=== PATIENT | female | born 1975 | race Caucasian/White ===

== ENCOUNTER 2021-06-17 20:16 | Inpatient (IN) | payer OTHER ==
[~2021-06-17] VITALS: Ht 152.4 cm; Wt 55.3 kg
[2021-06-17 20:24] VITALS: BP 104/44
[2021-06-17 20:47] LABS: ABSOLUTE NEUTROPHILS 4.8 thou/uL (1.4-8.2); BASOPHILS 0.4 % (0.0-2.0); HEMOGLOBIN 8.1 gm/dL (12.0-15.0); LYMPHOCYTES 14.7 % (24.0-44.0); MCH 27.6 pg (26.0-34.0); MCV 98.7 fL (80.0-100.0); PLATELET COUNT 328 thou/uL (150-400); POLYS 77.9 % (36.0-66.0); RBC 2.94 mil/uL (4.20-5.00); RDW 17.7 % (10.5-14.5); WBC 6.2 thou/uL (4.0-11.0)
[2021-06-17 21:08] LABS: BUN 51 mg/dL (7-18); CALCIUM 7.7 mg/dL (8.5-10.1); CHLORIDE 93 mmol/L (98-107); CREATININE 2.1 mg/dL (0.6-1.0); POTASSIUM 5.1 mmol/L (3.5-5.1); SODIUM 129 mmol/L (136-145)
[2021-06-17 21:10] LABS: ALBUMIN 2.7 g/dL (3.4-5.0); SGOT 99 U/L (15-37); SGPT 43 U/L (14-59); TOTAL BILIRUBIN 0.4 mg/dL (0.2-1.0); TOTAL PROTEIN 6.2 g/dL (6.4-8.2)
[2021-06-17 21:32] LABS: ANION GAP 31 mmol/L (7-16)
[2021-06-17 21:34] LABS: CO2 < 5 mmol/L (21-32); GLUCOSE 782 mg/dL (74-106)
[2021-06-17 21:57] LABS: BE(vivo) -27.9 mmol/L (-2 to +3); HCO3 3.2 mmol/L (22.0-26.0); PCO2 VENOUS 16.6 mmHg (41.0-51.0); PO2 VENOUS 71.9 mmHg (35.0-45.0)
[2021-06-18 02:47] LABS: HEMOGLOBIN 8.3 gm/dL (12.0-15.0); MCH 27.8 pg (26.0-34.0); MCHC 25.9 g/dL (28.0-37.0); RBC 2.98 mil/uL (4.20-5.00); RDW 17.4 % (10.5-14.5); WBC 7.1 thou/uL (4.0-11.0)
[2021-06-18 03:02] LABS: BUN 50 mg/dL (7-18); CALCIUM 7.4 mg/dL (8.5-10.1); CHLORIDE 97 mmol/L (98-107); CREATININE 1.9 mg/dL (0.6-1.0); MAGNESIUM 2.5 mg/dL (1.8-2.4); POTASSIUM 5.8 mmol/L (3.5-5.1); SODIUM 133 mmol/L (136-145)
[2021-06-18 03:23] LABS: ANION GAP 31 mmol/L (7-16)
[2021-06-18 03:24] LABS: CO2 < 5 mmol/L (21-32); GLUCOSE 788 mg/dL (74-106); MCV 107.3 fL (80.0-100.0)
[2021-06-18 07:29] LABS: ALBUMIN 2.6 g/dL (3.4-5.0); BUN 44 mg/dL (7-18); CALCIUM 6.9 mg/dL (8.5-10.1); CHLORIDE 105 mmol/L (98-107); CREATININE 1.9 mg/dL (0.6-1.0); MAGNESIUM 2.3 mg/dL (1.8-2.4); PHOSPHORUS 5.8 mg/dL (2.6-4.7)
[2021-06-18 07:31] LABS: ANION GAP 31 mmol/L (7-16)
[2021-06-18 07:33] LABS: CO2 < 5 mmol/L (21-32); GLUCOSE 557 mg/dL (74-106)
[2021-06-18 07:34] LABS: POTASSIUM 4.2 mmol/L (3.5-5.1); SODIUM 141 mmol/L (136-145)
--- NOTE | 2021-06-18 08:00 | EKG ---
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 Equipment Technician: SAVICONRADOAlexa : 1975 Requested By: Regina Ridley Order Number: [id number] MD: Peter Nieto Measurements Intervals [place] Rate: 88 P: 63 [place]: 164 QRS: 53 QRSD: 100 T: 3 QT: 401 QTc: 486 Interpretive Statements Sinus rhythm Borderline prolonged QT interval No previous ECG available for comparison Electronically Signed On 06-18-2021 8:00:12 MANAGER OUTREACH by Peter Nieto [email or web address] <ELECTRONICALLY SIGNED> By: Peter Nieto MD, [facility] 06/18/2100 45 45 Peter Nieto MD, FACC /EPI
[2021-06-18 10:00] LABS: HCO3 7.4 mmol/L (22.0-26.0); sO2 97.3 % (92.0-98.0)
[2021-06-18 10:01] LABS: pH 7.187 (7.360-7.450)
[2021-06-18 10:58] VITALS: BP 139/61
[2021-06-18 11:53] LABS: ALBUMIN 2.6 g/dL (3.4-5.0); CALCIUM 7.2 mg/dL (8.5-10.1); CREATININE 1.9 mg/dL (0.6-1.0); MAGNESIUM 2.1 mg/dL (1.8-2.4); PHOSPHORUS 3.7 mg/dL (2.5-4.9); POTASSIUM 3.5 mmol/L (3.5-5.1); TOTAL BILIRUBIN 0.3 mg/dL (0.2-1.0)
[2021-06-18 14:25] VITALS: BP 140/58
--- NOTE | 2021-06-18 15:12 | NUR ---
PT ADMITTED RELATED TO DKA, COVID 19, CHEST PAIN, DEHYDRATION. CM REVIEWED CHART AND SPOKE WITH CARE TEAM. CM ATTEMPED PT TO PT ON HER CELL . CM LEFT VM. CM CALLED AND SPOKE WITH PT'S MOTHER VINH BRADFORD . SHE INDICATED THAT PT RESIDES IN A HOUSE WITH HER DTR GEOVANI AND SON. SHE INDICATED THAT TO HER KNOWLEDGE THAT PT HAD BEEN INDEPENDENT WITH GIAT AND ADLS [employer] [facility]. SHE INDICATED THAT PT HAD BEEN GOING TO [facility] FOR OP INFUSION AND WC [employer] [facility]. SHE DIDN'T KNOW PT'S PCP. SHE PROVIDED CM'S INFO TO PT'S DTR GEOVANI CINTHYA WE HAD A NON WORKING NUMBER LISTED FOR HER CORRECT CONTACT IS . CM SPOKE WITH GEOVANI MENDES. SHE INDICATED THERE IS ON STEP TO ENTER HOME AND THAT PT HAD BEEN USING A CANE TO ASSIST WITH MOBILITY [employer]. DTR INDICATED THAT PT HAD BEEN DOING OP INFUSION AT [facility] EVERY WEDNESDAY AROUND 12 FOR 2 HRS. SHE INDICATED HER PCP IS DR. GAINES IN [facility] AND THAT PT SEES DR. MUELLER IN [facility]. SHE INDICATED THAT SHE ANTICAPTED PT RETURNING HOME ONCE MEDICALLY STABLE. CM FOLLOWING REGARDING POSSIBLE NEEDS UPON DC.
[2021-06-18 16:59] LABS: % SATURATION 4 % (20-39); IRON 8 ug/dL (50-170); TIBC 221 ug/dL (250-450)
[2021-06-18 18:00] LABS: ALBUMIN 1.7 g/dL (3.4-5.0); CREATININE 1.2 mg/dL (0.6-1.0); MAGNESIUM 1.4 mg/dL (1.8-2.4); TOTAL BILIRUBIN 0.2 mg/dL (0.2-1.0)
[2021-06-18 18:10] LABS: CALCIUM 5.3 mg/dL (8.5-10.1)
[2021-06-18 18:12] LABS: POTASSIUM 2.6 mmol/L (3.5-5.1)
[2021-06-18 18:26] LABS: PHOSPHORUS 2.2 mg/dL (2.6-4.7)
[2021-06-18 19:17] LABS: ALBUMIN 1.6 g/dL (3.4-5.0); CREATININE 1.3 mg/dL (0.6-1.0); MAGNESIUM 1.3 mg/dL (1.8-2.4); PHOSPHORUS 2.3 mg/dL (2.6-4.7); POTASSIUM 3.1 mmol/L (3.5-5.1); TOTAL BILIRUBIN 0.2 mg/dL (0.2-1.0); TOTAL PROTEIN 3.9 g/dL (6.4-8.2)
[2021-06-18 19:24] LABS: CALCIUM 5.3 mg/dL (8.5-10.1)
[2021-06-18 23:54] LABS: ALBUMIN 1.7 g/dL (3.4-5.0); CALCIUM 5.7 mg/dL (8.5-10.1); CREATININE 1.5 mg/dL (0.6-1.0); MAGNESIUM 1.3 mg/dL (1.8-2.4); PHOSPHORUS 1.4 mg/dL (2.6-4.7)
[2021-06-18 23:56] LABS: POTASSIUM 2.6 mmol/L (3.5-5.1)
[2021-06-19 00:35] LABS: CALCIUM 6.5 mg/dL (8.5-10.1); CREATININE 1.7 mg/dL (0.6-1.0); MAGNESIUM 1.6 mg/dL (1.8-2.4); PHOSPHORUS 1.7 mg/dL (2.6-4.7); POTASSIUM 3.1 mmol/L (3.5-5.1)
[2021-06-19 04:08] LABS: IgG 478 mg/dL (586-1602)
[2021-06-19 07:08] LABS: GLYCOHEMOGLOBIN (HGB A1C) 13.6 % (4.8-5.6)
[2021-06-19 07:19] LABS: ALBUMIN 1.9 g/dL (3.4-5.0); CALCIUM 6.5 mg/dL (8.5-10.1); CREATININE 1.6 mg/dL (0.6-1.0); MAGNESIUM 1.5 mg/dL (1.8-2.4); PHOSPHORUS 1.7 mg/dL (2.6-4.7); POTASSIUM 3.2 mmol/L (3.5-5.1)
--- NOTE | 2021-06-19 07:48 | HC ---
[facility] [place] [address] CONSULTATION Name: FARAZ LANE Room #: 170-6 ADM IN M.R.#: [id number] Admission: 06/17/21 Attend Phys: Lewis Aguila MD Discharge: Date of : 73 Report #: [id number] THIS REPORT FOR: cc: [facility] - Clinic physician unknown [facility] - Clinic physician unknown Carmelo Powell MD ~ DATE OF SERVICE: 06/18/2021 INFECTIOUS DISEASE CONSULTATION ATTENDING PHYSICIAN: Dr. Aguila. REASON FOR EVALUATION: COVID-19 infection, complicated by diabetic ketoacidosis. HISTORY OF PRESENT ILLNESS: Chart reviewed. The patient examined. This is a 45-year-old woman who has had diabetes mellitus roughly 25 years, who presented to an outside hospital, was found to have cough, some degree of dyspnea, nausea and emesis with progressive weakness. She was evaluated and was found to be markedly hyperglycemic, evidence of diabetic ketoacidosis, also positive for COVID-19. She was transferred for ongoing treatment and evaluation. She was hypotensive, started on norepinephrine, had required supplemental oxygen for a period of time as well. She notes she feels generally very poorly at this point, so empirically started on combination therapy with vancomycin and Zosyn and started on insulin protocol. Blood sugars now in the 200s. Initial lactic acid of 3.2, serially has been repeated now down to 1.6. Procalcitonin 0.48. Creatinine was increased to 2.1 with ____ low sodium of 129, given the glucose of 72. She is somewhat somnolent. She does admit to generalized abdominal discomfort. ALLERGIES: HYDROCODONE ____ INSULIN. CURRENT MEDICATIONS: Includes vancomycin, prochlorperazine, tramadol, ascorbic acid, zinc, Zosyn, p.r.n. ondansetron, analgesics. PAST MEDICAL HISTORY: Includes diabetes mellitus type 2, does have a chronic foot ulcer involving the plantar aspect of the right foot, previous toe amputations, previous cholecystectomy. SOCIAL HISTORY: No ethanol. No illicit drug use. Nonsmoker. FAMILY HISTORY: Unremarkable. REVIEW OF SYSTEMS: As noted above. PHYSICAL EXAMINATION: [facility] [address] [place] [address] CONSULTATION Name: FARAZ L[address] Room #: 170-6 ADM IN .R.#: [id number] Admission: 06/17/21 Attend Phys: Lewis Aguila MD Discharge: Date of : 73 Report #: [id number] GENERAL: She is chronically ill. She is really quite lethargic at this point, undernourished, pale, in moderate distress. VITAL SIGNS: Temperature 99.6, pulse 100, respirations 17, blood pressure 140/58. SKIN: Warm, dry, no rashes. HEENT: Normocephalic. Extraocular muscles intact. NECK: Supple. LUNGS: Diminished breath sounds. HEART: Tachycardic. Appears irregular. I do not appreciate a murmur. ABDOMEN: Distended, somewhat firm, mildly tender. No overt peritoneal signs. GENITOURINARY AND RECTAL: Deferred. LABORATORY DATA: Electrolytes: Sodium 143, potassium 3.5, chloride 105, bicarbonate 7, anion gap of 31, BUN and creatinine 44 and 1.9, glucose of 372. AST of 380, ALT of 139, albumin 2.6, total protein 6.0. ABGs: pH 7.187, pCO2 of 20, pO2 of 114 on room air. Lactic acid most recently 1.6. Coronavirus testing was positive. Procalcitonin 0.48. ASSESSMENT AND PLAN: 1. COVID-19 infection. 2. Diabetic ketoacidosis complicated by multiorgan dysfunction. 3. Acute kidney injury, elevated LFTs. We will continue empiric therapy with Zosyn and vancomycin. At this point, criteria likely preclude use of remdesivir, we will treat with baricitinib if pharmacy agreeable; corticosteroids likely exacerbate hyperglycemia, at this point it is not evident if she has primary pulmonary issues, although certainly at risk for clinical deterioration. At this point, she is quite ill. Continue efforts to correct ketoacidosis. We will monitor expectantly. <ELECTRONICALLY SIGNED> By: Carmelo Powell MD 06/19/21 0748 1540 2124 Carmelo Powell MD /nt
--- NOTE | 2021-06-19 08:09 | NUR ---
THIS RN HAS NOTIFIED DR OLMSTEAD REGARDING PT RESPONSE TO DKA PROTOCOL. VERBAL ORDERS GIVEN TO THIS RN FROM DR. OLMSTEAD. ORDER TO STOP FLUID INFUSION OF SODIUM BICARB AND CONTINUE INSULIN DRIP FOR 2 MORE HOURS, CHANGE RATE OF D5 1/2 NS TO 125 ML/HR, AND GIVE 40 MEQ K+ PO FOR K+ LEVEL. AWAITING FURTHER ORDERS TO D/C INSULIN DRIP AND INITIATE LANTUS. PT TOLERATING TX WELL. VSS.
[2021-06-19 08:43] VITALS: BP 110/49
--- NOTE | 2021-06-19 11:41 | NUR ---
DR FARLEY AT BEDSIDE, VERBAL ORDERS GIVEN TO D/C INSULIN DRIP IN APPROX 2 HOURS AFTER INITIATINGSUBQ INSULIN. SEE MAR FOR ORDERS. PT IS RESTING COMFORTABLY IN BED WITH EYES CLOSED.
--- NOTE | 2021-06-19 12:55 | NUR ---
PERIPERAL RIGHT FOREARM IV DCd. PHARM INSTRUCT TO ICE ARM AFTER IRON INFILTRATION. ICE PACK PLACED ON ARM.
[2021-06-19 14:07] LABS: ANA INTERPRETATION Positive (Negative)
[2021-06-19 14:31] LABS: ALBUMIN 1.6 g/dL (3.4-5.0); CREATININE 1.5 mg/dL (0.6-1.0); POTASSIUM 3.2 mmol/L (3.5-5.1); TOTAL BILIRUBIN 0.2 mg/dL (0.2-1.0); TOTAL PROTEIN 4.2 g/dL (6.4-8.2)
[2021-06-19 15:55] LABS: ALBUMIN 1.9 g/dL (3.4-5.0); CALCIUM 6.5 mg/dL (8.5-10.1); CREATININE 1.5 mg/dL (0.6-1.0); POTASSIUM 3.8 mmol/L (3.5-5.1); TOTAL BILIRUBIN 0.2 mg/dL (0.2-1.0); TOTAL PROTEIN 5.1 g/dL (6.4-8.2)
[2021-06-19 16:06] LABS: CERULOPLASMIN 18.7 mg/dL (19.0-39.0)
--- NOTE | 2021-06-19 16:32 | NUR ---
INSULIN DRIP AND D5 0.45NS D/C.
[2021-06-19 17:13] VITALS: BP 129/67
[2021-06-19 18:07] VITALS: BP 148/61
[2021-06-19 19:37] VITALS: BP 143/76
[2021-06-19 23:52] VITALS: BP 126/58
[2021-06-20] VITALS (8 sets, daily range): BP systolic 133–163; BP diastolic 72–92
[2021-06-20 03:45] LABS: MCHC 32.5 g/dL (28.0-37.0); RBC 2.37 mil/uL (4.20-5.00)
[2021-06-20 03:48] LABS: MCH 27.1 pg (26.0-34.0); RDW 17.2 % (10.5-14.5); WBC 6.7 thou/uL (4.0-11.0)
[2021-06-20 04:05] LABS: MCV 83.4 fL (80.0-100.0)
[2021-06-20 04:06] LABS: HEMOGLOBIN 6.4 gm/dL (12.0-15.0)
[2021-06-20 04:07] LABS: HEMATOCRIT 19.8 % (37.0-47.0)
[2021-06-20 05:03] LABS: ALBUMIN 1.6 g/dL (3.4-5.0); CALCIUM 6.2 mg/dL (8.5-10.1); CREATININE 1.4 mg/dL (0.6-1.0); MAGNESIUM 1.7 mg/dL (1.8-2.4); POTASSIUM 3.4 mmol/L (3.5-5.1); TOTAL BILIRUBIN 0.2 mg/dL (0.2-1.0); TOTAL PROTEIN 4.5 g/dL (6.4-8.2)
--- NOTE | 2021-06-20 07:44 | NUR ---
ASSUMED PT CARE AT 1900. PT ALERT & ORIENTED X 4 BUT IS LETHARGIC. THIS PT IS A NEW ADMISSION FROM ER. PT WAS FEBRILE AT BEGINNING OF SHIFT. ADMINISTERED TYLENOL AND NOTED RELIEF. PT HAD MULTIPLE C/O OF HEADACHE. ADMINISTERED PAIN MEDS PRN AND NOTED PARTIAL RELEIF. IV ABX AND FLUIDS ADMINISTERED. PT RECEIVED CRITICAL LAB THIS MORNING-HGB 6.4, NOTIFIED BELL STAFF AND RECEIVED ORDERS TO RECHECK HGB STAT. HGB RECHECK WAS 5.9. NOTIFIED BELL STAFF AND RECEIVED ORDERS TO TRANSFUSE, MAKE PT NPO, CONSULT GI, AND RECHECK HGB 1 HOUR POST TRANSFUSION. PT HAS A RIGHT DM TOE ULCER, THIS NURSE OBTAINED PICTURE AND PUT IT IN PT'S CHART. PT HAS WALDRON TO DD AND IS INCONTINENT OF BOWEL. WILL CONTINUE TO MONITOR.
[2021-06-20 10:03] LABS: BASOPHILS 0.2 % (0.0-2.0); HEMATOCRIT 23.4 % (37.0-47.0); HEMOGLOBIN 7.2 gm/dL (12.0-15.0); MCH 26.4 pg (26.0-34.0); MCV 85.2 fL (80.0-100.0); MONOCYTES 1.6 % (1.0-8.0); PLATELET COUNT 181 thou/uL (150-400); POLYS 88.2 % (36.0-66.0); RBC 2.75 mil/uL (4.20-5.00); RDW 17.4 % (10.5-14.5); WBC 6.8 thou/uL (4.0-11.0)
[2021-06-20 10:07] LABS: CREATININE 1.5 mg/dL (0.6-1.0); POTASSIUM 3.6 mmol/L (3.5-5.1)
[2021-06-20 10:13] LABS: ALBUMIN 1.9 g/dL (3.4-5.0); TOTAL BILIRUBIN 0.4 mg/dL (0.2-1.0); TOTAL PROTEIN 5.1 g/dL (6.4-8.2)
[2021-06-20 11:38] LABS: CHOLESTEROL 81 mg/dL (<200); HDL CHOLESTEROL 23 mg/dL (>40); LDL CHOLESTEROL 38 mg/dL (<100); TC:HDL 3.5 Ratio (Not establshd); TRIGLYCERIDE 100 mg/dL (<150); VLDL 20 mg/dL (<40)
--- NOTE | 2021-06-20 13:16 | 2DMMODE ---
[facility] [place] [address] 2 D/M-MODE ECHOCARDIOGRAM Name: FARAZ LANE Room #: 355-P ADM IN M.R.#: [id number] Admission: 06/17/21 Attend Phys: Lewis Aguila MD Discharge: Date of : 73 Report #: [id number] THIS REPORT FOR: cc: [facility] - Clinic physician unknown [facility] - Clinic physician unknown Peter Nieto MD [facility] ~ APPROVED REPORT Study performed: 06/20/2021 12:12:32 EXAM: Limited 2D, Doppler, and color-flow Echocardiogram Patient Location: Bedside Room #: 355 Status: routine BSA: 1.68 HR: 91 bpm BP: 147/78 mmHg Rhythm: NSR Other Information Study Quality: Adequate Indications Short of breath, chest pain, COVID + 2D Dimensions IVSd: 9.58 (7-11mm) LVDd: 39.97 mm PWd: 9.90 (7-11mm) LVDs: 25.65 (25-40mm) Left Atrium: 31.06 (27-40mm) Aortic Root: 27.44 mm Aortic Valve AoV Peak Kelvin.: 1.14 m/s AO Peak Gr.: 5.20 mmHg Mitral Valve E/A Ratio: 1.6 MV Decel. Time: 172.19 ms MV E Max Kelvin.: 1.06 m/s MV A Kelvin.: 0.67 m/s MV PHT: 49.93 ms Pulmonary Valve [facility] [address] [place] [address] 2 D/M-MODE ECHOCARDIOGRAM Name: FARAZ LANE Room #: 355-P ADM IN M.R.#: [id number] Admission: 06/17/21 Attend Phys: Lewis Aguila, Discharge: Date of : 73 Report #: [id number] PV Peak Kelvin.: 0.83 m/s PV Peak Gr.: 2.77 mmHg Tricuspid Valve TR Peak Kelvin.: 3.26 m/s RAP Estimate: 10.00 mmHg TR Peak Gr.: 42.47 mmHg PA Pressure: 52.00 mmHg Left Ventricle The left ventricle is normal size. There is normal LV segmental wall motion. There is normal left ventricular wall thickness. Left ventricular systolic function is normal. LVEF is 60-65%. The left ventricular diastolic function is normal. Right Ventricle The right ventricle is normal size. The right ventricular systolic function is normal. Atria The left atrium size is normal. The right atrium size is normal. Aortic Valve The aortic valve is normal in structure. No aortic regurgitation is present. There is no aortic valvular stenosis. Mitral Valve The mitral valve is normal in structure. Mild to moderate mitral regurgitation. Tricuspid Valve The tricuspid valve is normal in structure. Moderate tricuspid regurgitation. Estimated PAP is 50mmHg. Pulmonic Valve Pulmonic valve is not well visualized. Trace pulmonic regurgitation. Great Vessels The aortic root is normal in size. IVC is borderline dilated and collapses <50% with inspiration. Pericardium There is no pericardial effusion. <Conclusion> Normal left ventricle size/wall thickness [facility] [address] [place] [address] 2 D/M-MODE ECHOCARDIOGRAM Name: FARAZ LANE Room #: 355-P [facility] IN .R.#: [id number] Admission: 06/17/21 Attend Phys: eLwis Aguila, Discharge: Date of : 73 Report #: [id number] Ejection fraction 60% Normal right ventricular size/function Normal atrial size Normal aortic/mitral valve structure and function Mild to moderate/central mitral valve insufficiency Moderate tricuspid valve insufficiency Pulmonary systolic pressure estimated at 50 mmHg. No pericardial effusion Normal aortic root size. <ELECTRONICALLY SIGNED> By: Peter Nieto MD, FACC 06/20/211315 15 15 Peter Nieto MD, FACC /INF
--- NOTE | 2021-06-20 14:30 | NUR ---
SW reviewed chart and spoke with nursing and attending physician. Pt remains in Enhanced Isolation due to COVID. Pt has been febrile and is on room air. Pt is on IV abx. Pt had blood transfusion due to low hemoglobin. No weekend discharge planned. Therapy evals to be ordered when pt is able to participate. SW is following to assist as needed with discharge planning.
--- NOTE | 2021-06-20 16:40 | NUR ---
RN ASSUMED PT'S CARE AT 0700AM, PT IS A&OX4, RN HAS CALLED DR TO REPORT PT'S BLACK STOOL AND LOW HGB ( RECHECK 7.2),PT HAS FNISHED 1 UNIT BLOOD TRANSFUSION BY 1425PM, NO BLOOD REACTION BY THIS TIME, PT WAS IN GI LAB , EGD SHOWS GASTRITIS, NO ACTIVE BLEEDING , PT IS TOLERATVE GI PROCEDURE, PT'S VS AND O2SAT ARE STABLE BY THIS TIME, RN HAS UPDATED PT'S INFORMATIOM TO PT'S DAUGTER. PT IS CONTINUING IV ABX AND TREAT COVID MEDICATION. PT START TO EAT AT DINNER TIME.
[2021-06-21 00:04] VITALS: BP 161/82
[2021-06-21 04:53] VITALS: BP 157/83
[2021-06-21 05:01] LABS: HEMATOCRIT 27.7 % (37.0-47.0); HEMOGLOBIN 9.1 gm/dL (12.0-15.0); MCHC 32.8 g/dL (28.0-37.0); MCV 85.5 fL (80.0-100.0); RBC 3.24 mil/uL (4.20-5.00); WBC 7.8 thou/uL (4.0-11.0)
[2021-06-21 05:13] LABS: URINE BILIRUBIN NEGATIVE (Negative); URINE BLOOD 2+ (Negative); URINE CLARITY SL CLOUDY; URINE COLOR YELLOW; URINE GLUCOSE-RANDOM* 1+ (Negative); URINE KETONES NEGATIVE (Negative); URINE LEUKOCYTES-REFLEX TRACE (Negative); URINE NITRITE-REFLEX NEGATIVE (Negative); URINE PROTEIN (DIPSTICK) TRACE (Negative); URINE UROBILINOGEN 0.2 E.U./dl (0.2-1.0)
[2021-06-21 05:22] LABS: SQUAMOUS 0-3 Few /LPF (0-3); YEAST-REFLEX Present (None Seen)
[2021-06-21 05:23] LABS: ALBUMIN 1.9 g/dL (3.4-5.0); CALCIUM 7.5 mg/dL (8.5-10.1); CREATININE 1.4 mg/dL (0.6-1.0); MAGNESIUM 1.9 mg/dL (1.8-2.4); TOTAL BILIRUBIN 0.6 mg/dL (0.2-1.0); TOTAL PROTEIN 5.5 g/dL (6.4-8.2)
[2021-06-21 05:23] LABS: CASTS None Seen /LPF (None Seen); URIC ACID CRYSTALS >10 Many /LPF (None Seen); URINE RBC 1-2 Rare /HPF (NONE SEEN); URINE WBC-REFLEX 6-15 Few /HPF (0-5)
--- NOTE | 2021-06-21 06:29 | NUR ---
ASSUMED PT CARE AT 1900. PT IS RESTING IN BED AND IS LETHARGIC. PT HAS MULTIPLE C/O OF PAIN AND ACHINESS. ADMINISTERED PAIN MEDS PRN AND NOTED PARTIAL RELIEF. PT WAS FEBRILE AT BEGINNING OF SHIFT. ADMINISTERED TYLENOL AND NOTED RELIEF. PT ALSO HAD C/O OF N/V, ADMINISTERED ZOFRAN X 2 AND NOTED RELIEF. PT'S BLOOD SUGAR AT 2039 WAS HIGH -321. CONTACTED SURGICAL APPLIANCES SALESPERSON AND RECEIVED AND IMPLEMENTED ORDERS FOR INSULIN. WILL CONTINUE TO MONITOR.
[2021-06-21 07:54] VITALS: BP 155/80
--- NOTE | 2021-06-21 10:52 | EKG ---
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: JANE : 1975 Requested By: Wendy Callejas Order Number: [id number] MD: Jamil Massey Measurements Intervals [place] Rate: 85 P: 40 SD: 133 QRS: 18 QRSD: 61 T: 2 QT: 528 QTc: 628 Interpretive Statements Sinus rhythm Low voltage, precordial leads Borderline T abnormalities, diffuse leads Compared to ECG 06/17/2021 20:46:44 Low QRS voltage now present T-wave abnormality now present Electronically Signed On 06-21-2021 10:52:30 COGNOS by Jamil Massey [email or web address] <ELECTRONICALLY SIGNED> By: Jamil Massey MD 06/21/21 1052 1113 1113 Jamil Massey MD /EPI
[2021-06-21 11:23] VITALS: BP 153/63
[2021-06-21 15:29] VITALS: BP 153/71
--- NOTE | 2021-06-21 18:01 | NUR ---
RN ASSUMED PT'S CARE AT 0700AM, PT IS A&OX4, PT IS CONTINUING IV ABX AND TREAT COVID MEDICATION, PT IS ON ROOM AIR , PT'S O2SAT AND VS ARE STABLE BY THIS TIME, PT DOES NOT HAVE BLACK STOOL TODAY, RN HAS REPORTED TO HOSPITAL DR ABOUT PT STILL HAS COUGHING AND N/V , NEW ORDER RECEIVED, BUT PT DENIES PAIN AND SOB BY THIS TIME.
--- NOTE | 2021-06-21 18:43 | NUR ---
PT HAS ONE TIME BLACK STOOL TODAY, RN HAS REPORTED TO GI DR, PT'S HGB HAS IMPROVED ,HGB 9.1 TODAY.
[2021-06-21 19:19] VITALS: BP 152/51
[2021-06-21 22:06] LABS: HAV IgM AB (ANTI-HAV IgM) Negative (Negative); HEPATITIS B SURFACE AG Negative (Negative); HEPATITIS C VIRUS AB 0.1 (0.0-0.9)
[2021-06-22 04:00] VITALS: BP 175/87
--- NOTE | 2021-06-22 05:19 | NUR ---
ASSUMED PT CARE AT 1900. PT HAS A FLAT AFFECT AND IS COOPERATIVE. PT WAS FEBRILE AT BEGINNING OF SHIFT. ADMINISTERED TYLENOL AND NOTED RELIEF. PT HAS BEEN EXPERIENCING N/V, ZOFRAN ADMINISTERED AND RELIEF NOTED. PT HAD MULTIPLE LOOSE STOOLS AND IS INCONTINENT. WALDRON TO DD. PT HAD NO C/O OF PAIN. VSS EXCEPT BP IS ELEVATED. NOTIFIED INSURANCE CLAIMS ANALYST OF ELEVATED BP AND RECIVED ORDERS FOR PRN HYDRALAZINE. WILL CONTINUE TO MONITOR.
[2021-06-22 05:47] LABS: HEMATOCRIT 26.9 % (37.0-47.0); HEMOGLOBIN 8.9 gm/dL (12.0-15.0); MCH 27.6 pg (26.0-34.0); MCV 83.6 fL (80.0-100.0); RBC 3.22 mil/uL (4.20-5.00); RDW 16.4 % (10.5-14.5); WBC 6.3 thou/uL (4.0-11.0)
[2021-06-22 06:06] LABS: HAV IgM AB (ANTI-HAV IgM) Negative (Negative); HEPATITIS B SURFACE AG Negative (Negative)
[2021-06-22 06:07] LABS: ALBUMIN 1.7 g/dL (3.4-5.0); CREATININE 1.2 mg/dL (0.6-1.0); MAGNESIUM 1.4 mg/dL (1.8-2.4); TOTAL BILIRUBIN 0.6 mg/dL (0.2-1.0); TOTAL PROTEIN 5.6 g/dL (6.4-8.2)
[2021-06-22 06:23] LABS: POTASSIUM 2.9 mmol/L (3.5-5.1)
[2021-06-22 07:44] VITALS: BP 161/84
[2021-06-22 10:14] LABS: HEPATITIS C VIRUS AB 0.2
[2021-06-22 15:44] VITALS: BP 132/53
--- NOTE | 2021-06-22 18:01 | NUR ---
Patient is alert and oriented x4 this shift. Patient is on enhanced precautions. Patient is currently on room air. Patient is MS/ Tele and has been running sinus rhythm this shift. Patient has had seven loose watery greenish brown stools this shift. Patient has been treated as ordered for nausa/ vomiting/ and pain. Patient has a ramirez catheter in place that is patent and she has had good output. Patient gets up to use the commode x1 assist with a gaitbelt and a walker. Patient has a right upper arm double lumen picc line that is patent and saline locked with alcohol caps. Patient will continue to be monitored.
[2021-06-22 19:31] VITALS: BP 160/81
--- NOTE | 2021-06-23 02:42 | NUR ---
calls for assist after she has had a BM in the bed. she has been unable to hold it until nurse in the room. gave immodium after bm tonight. she denies pain. continues on iv antibiotiics. resting quietly at this time.
[2021-06-23 04:14] VITALS: BP 159/81
[2021-06-23 05:56] LABS: HEMATOCRIT 27.3 % (37.0-47.0); HEMOGLOBIN 9.1 gm/dL (12.0-15.0); MCH 27.6 pg (26.0-34.0); MCHC 33.2 g/dL (28.0-37.0); MCV 83.2 fL (80.0-100.0); RBC 3.28 mil/uL (4.20-5.00); RDW 16.4 % (10.5-14.5); WBC 5.1 thou/uL (4.0-11.0)
[2021-06-23 06:23] LABS: ALBUMIN 1.6 g/dL (3.4-5.0); CALCIUM 7.8 mg/dL (8.5-10.1); CREATININE 1.2 mg/dL (0.6-1.0); MAGNESIUM 1.7 mg/dL (1.8-2.4); TOTAL BILIRUBIN 0.6 mg/dL (0.2-1.0); TOTAL PROTEIN 5.6 g/dL (6.4-8.2)
[2021-06-23 06:30] LABS: POTASSIUM 2.9 mmol/L (3.5-5.1)
[2021-06-23 07:29] VITALS: BP 143/64
--- NOTE | 2021-06-23 15:03 | NUR ---
JOSE reviewed chart and spoke with nursing and attending physician. Pt remains in Enhanced Isolation due to COVID. Pt is afebrile and on room air. Pt is on IV abx. Discharge home is anticipated for tomorrow. JOSE spoke with pt via phone to discuss discharge plan. Pt states she receives weekly outpatient IV abx infusion at [facility]. Her scheduled time is Tuesdays at 1300. JOSE spoke with Precious in the Outpatient clinic at [facility], who states they close at 1630. Pt will need to be there tomorrow by 1500. Pt's infusion runs an hour. Per Precious, the infusion clinic does not need any documentation from [facility], as they receive orders from pt's PCP. They are aware that pt is COVID positive. JOSE updated attending physician and requested early discharge orders, to ensure pt arrives to [place] prior to 1500 tomorrow. JOSE is following to assist as needed with discharge planning.
[2021-06-23 15:25] VITALS: BP 165/84
--- NOTE | 2021-06-23 17:13 | NUR ---
PT A/O X 4. PT VERY INSISTENT ABOUT LEAVING IN THE AM. AFTER SPEAKING WITH ATTENDING, SPOKE WITH PT ABOUT DC'ING TOMORROW AND PT WAS AGREEABLE. NO COMPLAINTS OF N/V. ELECTROLYTES REPLACED. COMPLAINTS OF MINOR HEARTBURN. WILL CONTINUE TO MONITOR.
[2021-06-23 21:09] VITALS: BP 165/90
[2021-06-24 04:16] VITALS: BP 92/59
[2021-06-24 07:39] VITALS: BP 141/83
--- NOTE | 2021-06-24 10:08 | PATH ---
[facility] [address] [place] [address] PATHOLOGY RPT PROCEDURE Name: LIZY LANE Room #: 355-P ADM IN M.R.#: [id number] Admission: 06/17/21 Date of : 73 Discharge: Report #: [id number] Path Case #: [id number] [facility] Accession Number: [id number] . 01 Material submitted: . gastrointestinal site - GASTRITIS R/O H. PYLORI . 01 Clinical history: . ESOPHAGOGASTRODUODENOSCOPY DYSPHAGIA . 01 Diagnosis: Gastric biopsy "gastritis rule out H. pylori": - Mild chronic reactive gastropathy with mild chronic inflammation. - The immunoperoxidase stain for Helicobacter pylori is negative. (SHA/db; 06/23/2021) LBQ 06/23/2021 1211 Local . 01 Electronically signed: . Vincent Singh MD, Pathologist NPI- [id number] . 01 Gross description: . Received in formalin labeled "Zahira, Lizy, gastritis rule H. pylori" are 2 fragments of lynn-brown soft tissue measuring 0.5 x 0.4 x 0.3 cm and 0.5 x 0.3 x 0.2 cm. The specimen is submitted entirely in A1. ([facility]; 06/22/2021) GZA/GZA 06/22/2021 1019 Local . 01 Pathologist provided ICD-10: K31.9, K29.50 . 01 CPT . 625533, A77482 Specimen Comment: A courtesy copy of this report has been sent to [phone], [phone] Specimen Comment: [id number] Specimen Comment: Report sent to / DR FARLEY Specimen Comment: A duplicate report has been generated due to demographic updates. Performed at: 01 [facility] [address], [place], [place] [address] MD Vincent Singh MD Phone: [phone]
[2021-06-24 10:17] LABS: HEMATOCRIT 30.6 % (37.0-47.0); HEMOGLOBIN 9.8 gm/dL (12.0-15.0); MCHC 32.2 g/dL (28.0-37.0); MCV 83.9 fL (80.0-100.0); RBC 3.64 mil/uL (4.20-5.00); RDW 16.2 % (10.5-14.5)
[2021-06-24 10:24] LABS: CALCIUM 8.2 mg/dL (8.5-10.1); CREATININE 1.2 mg/dL (0.6-1.0); MAGNESIUM 1.9 mg/dL (1.8-2.4); POTASSIUM 3.4 mmol/L (3.5-5.1)
[2021-06-24] MEDS ORDERED: PROTONIX40 M2 PO (12:16)
[2021-06-24 12:20] VITALS: BP 141/83
--- NOTE | 2021-06-24 12:33 | NUR ---
assumed patient care at 0700. a/o x4. progressing towards poc goals. dc to home with picc line to received iv med at [facility] weekly.
--- NOTE | 2021-06-24 13:39 | NUR ---
DISCHARGE NOTE: SW reviewed chart and spoke with nursing and attending physician. Pt is medically stable for discharge home today. SW spoke with pt via phone to discuss discharge plan. Pt states her mother is able to provide transportation home and she will be going to her outpatient infusion appt at [facility] this afternoon. Pt's mother to be at [facility] around noon. SW notified attending physician and hospitalist ORGAN RECOVERY COORDINATOR to assist with completing discharge ppwk. No SW needs identified. SW is available to assist should needs arise.
--- NOTE | 2021-06-25 10:45 | P ---
[facility] [place] [address] PROCEDURE REPORT Name: FARAZ LANE Room #: 355-[facility] IN M.R.#: [id number] Admission: 06/17/21 Attend Phys: Lewis Aguila MD Discharge: 06/24/21 Date of : 73 Report #: [id number] THIS REPORT FOR: cc: [facility] - Clinic physician unknown [facility] - Clinic physician unknown Thang Tristan MD ~ cc: Lewis Aguila MD, Carmelo Powell MD DATE OF SERVICE: 06/20/2021 PROCEDURE PERFORMED: Upper endoscopy with biopsies and esophageal dilation. HISTORY OF PRESENT ILLNESS: The patient is a 45-year-old female who was admitted with DKA, chest pain, elevated liver function tests, was noted to have melanotic type stools with recent nausea and dysphagia as well. She has a known history of esophageal strictures that have been dilated in the past. Her hemoglobin dropped from 8.3-7.2. Her stool is Hemoccult positive. Cardiology has evaluated the patient. Troponins are normal. Echocardiogram was okay. Plan is for upper endoscopy today. DESCRIPTION OF PROCEDURE: The risks and benefits of the procedure were explained to the patient, those risks including but not limited to bleeding, perforation and the risk of sedation. She understood these risks and gave informed consent. Sedation was given using propofol per anesthesia. Next, using a standard Olympus upper endoscope, the scope was placed in the patient's mouth and advanced under direct vision through the esophagus, stomach and into the second portion of the duodenum. The larynx was normal in appearance. The esophagus was normal throughout. The GE junction was normal. In the stomach, there was a moderate gastritis noted in the body. No evidence of bleeding. However, the mucosa was friable. There was a small amount of food residual suggesting possible gastroparesis. No ulcerations or erosions were noted. No evidence of blood was noted throughout the exam today. I did obtain biopsies of the gastritis to rule out the possibility of H. pylori. The pylorus was normal and patent. In the duodenal bulb, mild duodenitis was noted. No evidence of bleeding or ulcers. The first and second portion of the duodenum were normal. The scope was then brought back up into the patient's stomach and a Savary guidewire was inserted through the scope, leaving the guidewire in place as the scope was then withdrawn. Next, a 48-Thai Savary dilation of the esophagus was then performed without difficulty. The wire and dilator removed. The scope was reintroduced into the patient's stomach. There was no evidence of mucosal tear after dilation. The scope was then withdrawn and the procedure terminated. The patient tolerated the procedure well. IMPRESSION: 1. Gastritis. No evidence of active bleeding at this time. 2. Small food residual suggesting the possibility of gastroparesis. [address] [address] PROCEDURE REPORT Name: FARAZ LANE Room #: 355-P DIS IN M.R.#: [id number] Admission: 06/17/21 Attend Phys: Lewis Aguila MD Discharge: 06/24/21 Date of : 73 Report #: [id number] 3. Otherwise, normal upper endoscopy. RECOMMENDATIONS: 1. Await biopsy results. 2. Continue PPI therapy. 3. Continue to monitor hemoglobin closely. 4. Observe the patient post-dilation. Thank you for allowing me to participate in her care. <ELECTRONICALLY SIGNED> By: Thang Tristan MD 06/25/21 1045 1348 2324 Thang Tristan MD /nt
== END 2021-06-24 12:38 | disposition home or self-care (01) | DRG 871 ==
LOC: ER 20:16 → EROBS 22:26 → 3W 06-19 17:55
PROVIDERS: Emergency Medicine; Nurse Practitioner; Nurse Practitioner Adult Health; Nurse Practitioner Family; ADMIT Internal Medicine; ATTEND Internal Medicine
PROC: 05HY33Z Insertion of Infusion Device into Upper Vein, Percutaneous Approach (ICD-10-PCS; principal; 2021-06-18)
PROC: 30233N1 Transfusion of Nonautologous Red Blood Cells into Peripheral Vein, Percutaneous Approach (ICD-10-PCS; 2021-06-20)
PROC: 0DB68ZX Excision of Stomach, Via Natural or Artificial Opening Endoscopic, Diagnostic (ICD-10-PCS; 2021-06-20)
PROC: 0D758ZZ Dilation of Esophagus, Via Natural or Artificial Opening Endoscopic (ICD-10-PCS; 2021-06-20)
DX: A41.9 Sepsis, unspecified organism (principal); E10.10 Type 1 diabetes mellitus with ketoacidosis without coma; U07.1 COVID-19; E43 Unspecified severe protein-calorie malnutrition; R65.21 Severe sepsis with septic shock; J69.0 Pneumonitis due to inhalation of food and vomit; N17.9 Acute kidney failure, unspecified; D62 Acute posthemorrhagic anemia; E86.0 Dehydration; K29.70 Gastritis, unspecified, without bleeding; E10.621 Type 1 diabetes mellitus with foot ulcer; R13.10 Dysphagia, unspecified; I95.9 Hypotension, unspecified; K75.9 Inflammatory liver disease, unspecified; R53.81 Other malaise; R74.01 Elevation of levels of liver transaminase levels; Z88.6 Allergy status to analgesic agent; Z90.49 Acquired absence of other specified parts of digestive tract; Z89.429 Acquired absence of other toe(s), unspecified side; Z89.421 Acquired absence of other right toe(s); Z68.23 Body mass index [BMI] 23.0-23.9, adult
CPT/HCPCS: 10779; 10879